=== PATIENT | male | born 1970 | race Two or more races ===

== ENCOUNTER 2016-11-14 20:57 | Emergency (ER) | payer BC, MEDICAID ==
[~2016-11-14] VITALS: Ht 170.2 cm; Wt 113.4 kg
[~2016-11-14 20:57] MED LIST: ENAL-3 PO
[2016-11-15 01:23] VITALS: BP 130/72
== END 2016-11-15 01:24 | disposition home or self-care (01) ==
LOC: ER 21:00
DX: T18.9XXA Foreign body of alimentary tract, part unspecified, initial encounter (principal); I10 Essential (primary) hypertension; F17.210 Nicotine dependence, cigarettes, uncomplicated; X58.XXXA Exposure to other specified factors, initial encounter; Y93.89 Activity, other specified; Y99.8 Other external cause status; Y92.89 Other specified places as the place of occurrence of the external cause
CPT/HCPCS: 70360